=== PATIENT | female | born 1980 | race Caucasian/White ===

== ENCOUNTER 2017-03-28 13:44 | Emergency (ER) | payer BC ==
[~2017-03-28] VITALS: Ht 152.4 cm; Wt 138.7 kg
[~2017-03-28 13:44] MED LIST: ALBU8.5H5 INH; AZIT250T94 PO; CLIN-73 PO; DICL50TA11 PO; IBUP-1542 PO; PROM25TA14 PO
[2017-03-28 13:48] VITALS: Ht 152.4 cm; Wt 138.7 kg
[2017-03-28] MEDS ORDERED: HYDROCODONE/APAP (5/325) TAB PO ONE (16:00)
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
--- NOTE | 2017-03-28 16:49 | RADRPT ---
PROCEDURE: XR Knee. CLINICAL INDICATION: Right knee pain. TECHNIQUE: 4 views of the right knee were obtained. The images reviewed on a PACS workstation. COMPARISON: None. FINDINGS: The bones appear intact, with no evidence of fracture, erosion, demineralization, or dislocation.The alignment of the femorotibial and patellofemoral joints appears normal. No joint space narrowing is seen. No evidence of effusion. No soft tissue swelling is present. IMPRESSION: Unremarkable examination of the right knee. RPTAT: HPNM Physician Wild Date Time Electronically viewed and signed by Physician Wild on 03/28/2017 16:48 /
[2017-03-28] MEDS ORDERED: KETOROLAC 30 MG INJ IM STA (17:47)
== END 2017-03-28 18:10 | disposition home or self-care (01) ==
LOC: FTE 13:44
DX: M25.561 Pain in right knee (principal); I10 Essential (primary) hypertension
CPT/HCPCS: 73562; 96372; J1885; Z7502; Z7610

== ENCOUNTER 2017-04-13 00:27 | Emergency (ER) | END 2017-04-13 07:56 | disposition home or self-care (01) ==

== ENCOUNTER 2018-02-28 18:29 | Emergency (ER) | END 2018-02-28 21:46 | disposition home or self-care (01) ==